=== PATIENT | female | born 1945 | race Caucasian/White ===

== ENCOUNTER 2017-04-13 13:10 | Emergency (ER) | payer MEDICARE ==
[~2017-04-13] VITALS: Ht 180.3 cm; Wt 70.0 kg
[~2017-04-13 13:10] MED LIST: ACAMPROSATE CA333 MG PO; ALPRAZOLAM0.5 MG PO; ALPRAZOLAM1 MG PO; ANAPROX DS550 MG OR; ASPIRIN CHLD81 M1 OR; ASPIRIN EC81 MG PO; CITALOPRAM20 MG PO; CLONAZEPAM1 MG PO; CYMBALTA30 MG PO; DESYREL50 MG PO; FLEXERIL PO; GABAPENTIN300 MG PO; HYDROCHLORO25 MG/TAB PO; LASIX40 MG OR; LIPITOR10 MG PO; LISINOPRIL10 MG PO; LISINOPRIL20 MG PO; LOPRESSOR50 M1 PO; LORTAB 1010 MG PO; MECLIZINE25 MG PO; MEDDOSEPAK OR; METHOCARBAM500 MG PO; MICARDIS80 MG OR; MORPHINE SUL30 M5 PO; NORTRIPTYLIN25 MG PO; OXYCOD/APAP1 TA3 PO; OXYCODONE HCL30 MG PO; OXYCODONE15 MG OR; PAXIL CR25 MG OR; PAXIL20 MG OR; PREDNISONE20 MG PO; RESTORIL15 MG PO; ROXICODONE30 MG OR; TORADOL OR; TYLENOL500 MG OR; ULTRAM50 MG OR; XANAX1 MG OR; ZANAFLEX4 MG PO
[2017-04-13] MEDS ORDERED: MORPHINE SUL30 M3 PO (14:42)
[2017-04-13] MEDS ORDERED: TEMAZEPAM30 MG PO (14:43)
[2017-04-13] MEDS ORDERED: GABAPENTIN600 MG PO (14:45)
[2017-04-13] MEDS ORDERED: AUGMENTIN500TAB PO (15:23)
[2017-04-13 15:29] VITALS: BP 116/74
== END 2017-04-13 15:29 | disposition home or self-care (01) ==
LOC: ED 13:10
DX: S41.112A Laceration without foreign body of left upper arm, initial encounter (principal); M79.622 Pain in left upper arm; W01.190A Fall on same level from slipping, tripping and stumbling with subsequent striking against furniture, initial encounter; Y93.9 Activity, unspecified; Y92.003 Bedroom of unspecified non-institutional (private) residence as the place of occurrence of the external cause

== ENCOUNTER 2017-10-10 19:43 | Emergency (ER) | payer MEDICARE ==
[~2017-10-10] VITALS: Ht 180.3 cm; Wt 56.0 kg
[~2017-10-10 19:43] MED LIST changes: +AUGMENTIN500TAB PO; +GABAPENTIN600 MG PO; +MORPHINE SUL30 M3 PO; +TEMAZEPAM30 MG PO
[2017-10-10 20:21] LABS: HEMATOCRIT 28.6 % (37.0-47.0); HEMOGLOBIN 9.7 g/dl (12.0-16.0); IMMATURE GRANULOCYTES 0.3 % (0.0-1.0); MEAN CORPUSCULAR HGB 34.6 pG CALC (26.0-32.0); MEAN CORPUSCULAR HGB CONC 33.9 g/L CALC (32.0-36.0); NEUT# 6.63 thou/uL (2.00-7.15); RED BLOOD COUNT 2.8 mill/uL (4.20-5.60); RED CELL DISTRI WIDTH 12.2 % (11.5-15.5)
[2017-10-10 20:22] LABS: MEAN CELL VOLUME 102.1 fL CALC (80.0-100.0)
[2017-10-10 21:05] LABS: BILIRUBIN, TOTAL 0.6 mg/dL (0.0-1.4); POTASSIUM 4.3 mmol/l (3.5-5.1)
[2017-10-10 21:08] LABS: ALBUMIN 3.7 g/dL (3.2-5.0); TOTAL PROTEIN 7.1 g/dL (6.3-8.2)
[2017-10-10 22:29] LABS: URINE BILIRUBIN - DIPSTICK NEGATIVE (NEGATIVE); URINE BLOOD DIPSTICK TRACE-INTACT (NEGATIVE); URINE COLOR YELLOW; URINE GLUCOSE - DIPSTICK NEGATIVE (NEGATIVE); URINE KETONE NEGATIVE (NEGATIVE); URINE LEUK ESTERASE NEGATIVE (NEGATIVE); URINE NITRITE - DIPSTICK NEGATIVE (Negative); URINE PH 5.5 (4.5-8.0); URINE PROTEIN - DIPSTICK NEGATIVE (NEG-TRACE); URINE SPECIFIC GRAVITY >=1.030; URINE UROBILINOGEN - DIPSTICK 0.2 E.U./dL (0.2)
[2017-10-10 22:30] LABS: URINE CLARITY CLEAR
[2017-10-10 22:32] LABS: COCAINE NEGATIVE (NEGATIVE); METHADONE NEGATIVE (NEGATIVE); TETRAHYDROCANNABIONOL NEGATIVE (NEGATIVE)
[2017-10-10 22:33] LABS: BARBITURATES NEGATIVE (NEGATIVE); OXCYCODONE POSITIVE (NEGATIVE); TRICYLIC ANTIDEPRESSANTS NEGATIVE (NEGATIVE)
[2017-10-11 00:30] VITALS: BP 107/65
== END 2017-10-11 00:30 | disposition short-term general hospital (02) ==
LOC: ED 19:43
PROVIDERS: Emergency Medicine
PROC: 0T9B70Z Drainage of Bladder with Drainage Device, Via Natural or Artificial Opening (ICD-10-PCS; principal; 2017-10-10)
DX: N17.9 Acute kidney failure, unspecified (principal); M62.82 Rhabdomyolysis; R55 Syncope and collapse; R94.31 Abnormal electrocardiogram [ECG] [EKG]; Y92.009 Unspecified place in unspecified non-institutional (private) residence as the place of occurrence of the external cause; Z72.89 Other problems related to lifestyle

== ENCOUNTER 2019-01-04 09:55 | Inpatient (IN) | payer MEDICARE ==
[~2019-01-04] VITALS: Ht 180.3 cm; Wt 55.0 kg
--- NOTE | 2019-01-04 09:55 | NUR ---
PATIENT ARRIVES TO ED VIA EMS. ALERT AND ORIENTED X3.
--- NOTE | 2019-01-04 10:45 | NUR ---
PATIENT TO CT SCAN.
[2019-01-04 11:05] LABS: HEMOGLOBIN 11.4 g/dl (12.0-16.0); IMMATURE GRANULOCYTES 0.4 % (0.0-5.0); MEAN CELL VOLUME 98.1 fL CALC (80.0-100.0); MEAN CORPUSCULAR HGB 31.6 pG CALC (26.0-32.0); MEAN CORPUSCULAR HGB CONC 32.2 g/L CALC (32.0-36.0); NEUT# 7.15 thou/uL (2.00-7.15); RED BLOOD COUNT 3.61 mill/uL (4.20-5.60); RED CELL DISTRI WIDTH 12.9 % (11.5-15.5)
[2019-01-04 11:09] LABS: HEMATOCRIT 35.4 % (37.0-47.0)
[2019-01-04 11:20] LABS: ANION GAP 13 (6-22 (CALC)); BUN 24 mg/dL (8-23); CARBON DIOXIDE 26 mmol/l (22-30); CHLORIDE 103 mmol/l (95-108); POTASSIUM 4.5 mmol/l (3.5-5.1); SODIUM 138 mmol/l (137-146)
[2019-01-04 11:26] LABS: BUN/CREATININE RATIO 40 (12-20 (CALC)); CREATININE 0.6 mg/dL (0.5-1.0); GFR > 60 ML/MIN (>=60 (CALC)); GFR FOR AFR.AMER. > 60 ML/MIN (>=60 (CALC))
--- NOTE | 2019-01-04 11:35 | NUR ---
PATIENT RESTING ON STRETCHER, NO SIGNS OF DISTRESS NOTED. RATES BACK PAIN 9/10. AFTER BEING MEDICATED WITH 1000 MG OF TYLENOL AND 30 MG OF TORADOL IV PUSH. VISITOR AT BEDSIDE.
[2019-01-04] MEDS ORDERED: CYCLOBENZAPR10 MG PO (11:39)
--- NOTE | 2019-01-04 12:04 | NUR ---
AT BEDSIDE TO DISCUSS RESULTS AND PLAN OF CARE.
--- NOTE | 2019-01-04 13:08 | NUR ---
REPORT CALLED TO ADELE SEGOVIA.
--- NOTE | 2019-01-04 13:12 | NUR ---
PATIENT TRANSPORTED TO [facility] VIA STRETCHER WITH TELE IN PLACE. MORENO SEGOVIA AT BEDSIDE. CARE RELINQUISHED.
--- NOTE | 2019-01-04 13:16 | NUR ---
PT ARRIVED TO MED/SURG ROOM 271 IN STABLE CONDITION ACCOMPANIED BY ADELE DEUTSCH VIA STRETCHER;PT TRANSPORTED TO HOSPITAL BED WITH 3 PERSON ASSIST;WT AND VS OBTAINED BY ILSA CALDERA;PT REPORTS FALLING YESTERDAY MORNING 01/03/19 WHILE AT AT HOME AND AGAIN TODAY, PT RESIDES WITH HER SISTER;PT A&O X4,ORIENTED TO ROOM AND CALL LIGHT SYSTEM;PT REPORTS LOWER BACK PAIN RATING 8/10 ON THE PAIN SCALE, PT TO BE MEDICATED PER EMAR;ASSESSMENT COMPLETED;RESPIRATIONS EVEN AND UNLABORED ON RA,CLEAR LUNG SOUNDS;ABDOMEN SOFT ON PALPATION AND ACTIVE IN ALL 4 QUADRANTS, LAST BM 01/04/19;WEAK PEDAL PULSES;SKIN INTACT, PT DOES APPEAR UNKEPT;#22G TO RIGHT FOREARM FLUSHED AND PATENT,D5 1/2 NS 75ML/HR,SITE APPEARS HEALTHY;TELE MONITORING IN PLACE;PT DENIES ANY ADDITIONAL NEEDS AT THIS TIME TIME AND IS ENCOURAGED TO CALL FOR ASSISTANCE IF NEEDED;FALL PRECAUTIONS IN PLACE WITH BED IN THE LOWEST POSITION AND CALL LIGHT IN REACH;WILL CONTINUE TO MONITOR
[2019-01-04 13:32] VITALS: BP 142/71
--- NOTE | 2019-01-04 13:47 | NUR ---
PT MEDICATED WITH PRN DILAUDID 1MG IVP PER ORDER FOR LOWER BACK PAIN RATING 8/10 ON THE PAIN SCALE,WILL CONTINUE TO MONITOR
[2019-01-04 14:20] VITALS: BP 131/56
--- NOTE | 2019-01-04 14:25 | NUR ---
PT TRANSPORTED TO MRI IN STABLE CONDITION VIA STRETCHER ACCOMPANIED BY ILSA CALDERA.
--- NOTE | 2019-01-04 15:35 | NUR ---
PT ARRIVED BACK TO MED/SURG ROOM 271 IN STABLE CONDITION VIA STRETCHER ACCOMPANIED BY ILSA CALDERA;PT RE-POSITIONED INTO HOSPITAL BED WITH 4 PERSON ASSIST;RESPIRATIONS EVEN AND UNLABORED ON RA;IV FLUIDS RE-STARTED AT THIS TIME TO RFA, SITE APPEARS HEALTHY;TELE MONITORING IN PLACE;PT DENIES ANY ADDITIONAL NEEDS AT THIS TIME AND IS ENCOURAGED TO CALL FOR ASSISTANCE IF NEEDED;CALL LIGHT IN REACH;WILL CONTINUE TO MONITOR
--- NOTE | 2019-01-04 17:09 | NUR ---
PT CRYING REPORTING SHE IS IN SEVERE PAIN AND REQUESTING PAIN MEDICATION;PT EDUCATED THAT PER MD ORDERS IT IS TO EARLY TO ADMINISTER PRN DILAUDID;PT CRYING,WHEN ASKED TO RATE HER PAIN SHE REPORTS A 3/10 ON THE PAIN SCALE TO HER LOWER BACK;NELLA ATTEMPTS TO ADMINISTER PRN TYLENOL BUT PT REFUSES TYLENOL STATING "TYLENOL MAKES ME SICK", NELLA ATTEMPTED TO ASK PT ABOUT THE EFFECTS OF TYLENOL ON HER AND PT IS UNABLE TO PROVIDED INFORMATION REGARDING TYLENOL REACTION;PT MEDICATED WITH PRN OXYCOTIN 40MG PO;WILL MONITOR FOR EFFECTIVENESS
--- NOTE | 2019-01-04 17:27 | NUR ---
AT BEDSIDE DISCUSSING POC.
--- NOTE | 2019-01-04 18:00 | NUR ---
16F CARRION CATHETER INSERTED AT THIS TIME PER ORDER, 200CC OF CLEAR/YELLOW URINE OBTAINED AND STAT LOCK PLACED ON INNER RIGHT THIGH. CATHETER BAG SIGNED AND DATED.PT TOLERATED WELL;WILL CONTINUE TO MONITOR
--- NOTE | 2019-01-04 20:15 | NUR ---
AIDE REPORTED THAT PT WAS NOT WAKING UP. UPON ENTERING THE ROOM PT APPEARED TO BE SLEEPING VERY SOUNDLY. V/S WERE ASSESSED, BP 142/69,HR90, 02SATS 93% BRIGHT LIGHTS TURNED ON AND PT AWOKE TO MY VOICE AND STERNAL RUB. PT WAS CONFUSED TO LOCATION AND CIRCUMSTANCE STATING SHE IS "IN REHAB." PT STATED CORRECT NAME AND W/VERY SLURRED SPEECH. PT HAVING DIFFICULTY HOLDING HER EYES OPEN AND MAKING EYE CONTACT. PT ASSESSED. WILL CONTINUE TO MONITOR.
--- NOTE | 2019-01-04 20:20 | NUR ---
PT SUGAR ASSESSED @109 VIA ACCU-CHECK
[2019-01-04 20:26] VITALS: BP 142/69
--- NOTE | 2019-01-04 21:00 | NUR ---
PT AWOKE AND TALKING TO AIDE W/SLIGHTLY GARBLED SPEECH, BUT EYES OPEN AND LOCX3. WILL CONTINUE TO MONITOR.
--- NOTE | 2019-01-04 21:30 | NUR ---
PT AWAKES I ENTER ROOM AND COMMUNICATES CLEARLY W/SLIGHTLY GARBLED SPEECH. PT IS JUMPY. NO NOTED TREMORS AT THIS TIME. WILL CONTINUE TO MONITOR.
--- NOTE | 2019-01-04 22:27 | NUR ---
PT MEDICATED ORDERS PROVIDE. PT IS JUMPY, FIDGETY, NEURO'S ASSESSED. PT HAS DIFFICULTY FOLLOWING INSTRUCTIONS, BUT WAS ABLE TO IDENTIFY OBJECTS FOR ME. BILATERAL STRENTGH IN FOOT ROM, WILL NOT HOLD ARMS OR LEGS UP BILATERALLY FOR ANY LENGTH OF TIME, DROP TO THE BED. BED ALARM ON FOR PRECAUTION.
[2019-01-05] VITALS (7 sets, daily range): BP systolic 99–140; BP diastolic 49–70
--- NOTE | 2019-01-05 00:04 | NUR ---
PT MEDICATED FOR FEVER 101.9, BLANKETS REMOVED. V/S ASSESSED AT THIS TIME. PT WAS JUST CLEANED OF INCONTINENT LOOSE BROWN STOOL.
--- NOTE | 2019-01-05 00:35 | NUR ---
PT MEDICATED FOR PAIN /, PT WAS JERKING, FIDGETING, SHAKING W/PAIN. ED CALLED TO REPORT ARTICFACT W/CENTRIFUGAL SCREEN TENDER. LEADS ARE IN PLACE, WILL FOLLOW-UP AFTER PT IS MEDICATED FOR READING.
--- NOTE | 2019-01-05 00:44 | NUR ---
PT APPEARS MUCH CALMER, REPORTS FEELING A LITTLE BETTER ALREADY. ED REPORTS TELEMETRY READING. BED ALARM IS ON.
--- NOTE | 2019-01-05 03:30 | NUR ---
pt c/o pain 12/27. medicated w/muscle relaxant for spasms in back. will continue to monitor. pt communicating much clearer at this time.
[2019-01-05 05:08] LABS: HEMATOCRIT 29.5 % (37.0-47.0); HEMOGLOBIN 9.7 g/dl (12.0-16.0); IMMATURE GRANULOCYTES 0.1 % (0.0-5.0); MEAN CELL VOLUME 97.7 fL CALC (80.0-100.0); MEAN CORPUSCULAR HGB 32.1 pG CALC (26.0-32.0); MEAN CORPUSCULAR HGB CONC 32.9 g/L CALC (32.0-36.0); PLATELET COUNT 157 thou/uL (130-400); RED BLOOD COUNT 3.02 mill/uL (4.20-5.60); RED CELL DISTRI WIDTH 12.9 % (11.5-15.5)
[2019-01-05 05:29] LABS: ANION GAP 10 (6-22 (CALC)); BILIRUBIN, TOTAL 0.7 mg/dL (0.0-1.4); BUN 29 mg/dL (8-23); BUN/CREATININE RATIO 35 (12-20 (CALC)); CARBON DIOXIDE 26 mmol/l (22-30); CHLORIDE 106 mmol/l (95-108); CREATININE 0.8 mg/dL (0.5-1.0); GFR > 60 ML/MIN (>=60 (CALC)); GFR FOR AFR.AMER. > 60 ML/MIN (>=60 (CALC)); POTASSIUM 4.8 mmol/l (3.5-5.1); SGOT/AST 47 u/l (9-36); SODIUM 137 mmol/l (137-146); TOTAL PROTEIN 5.8 g/dL (6.3-8.2)
[2019-01-05 05:30] LABS: ALKALINE PHOSPHATASE 119 u/l (38-126)
[2019-01-05 05:36] LABS: MANUAL DIFFERENTIAL YES
[2019-01-05 05:37] LABS: BAND 52 % (0-8)
--- NOTE | 2019-01-05 08:12 | NUR ---
PT A/O X3. SPEECH IS CLEAR. RESP EVEN AND UNLABORED. LUNG SOUNDS CLEAR. TELE IN PLACE. BOWEL SOUNDS ACTIVE X4. STRONG RADIAL AND PEDAL PULSES. #22RFA D5 1/2 NS @75. SITE APPEARS HEALTHY. SKIN INTACT. PT C/O SHARP BACK PAIN; 8 OUT OF 10 ON PAIN SCALE. DISCUSSED W/ PT MED SCHEDULE, PT ONLY WANTS IV PAIN MED. PT STATES "IT WORKS BETTER THAN THE PILLS". DISCUSSED W/ PT I WILL BRING IV PAIN MEDICATION WHEN DUE. PT STATES UNDERSTANDING. REPOSITIONED FOR COMFORT. NO FURTHER NEEDS AT THIS TIME. POC DISCUSSED. SAFETY PRECAUTIONS IN PLACE. CALL LIGHT IN REACH. WILL CONTINUE TO MONITOR.
--- NOTE | 2019-01-05 08:29 | NUR ---
DR. JORGENSEN TOLD DATA INPUT CLERK TO CALL DR. ROSALES REGARDING THIS PATIENT. CALLED THE [phone] NUMBER AND GOT HIS CALL SERVICE LINE. TOLD HER PT NAME, AND THAT DR. JORGENSEN WOULD LIKE HIM TO CALL HIM ON HIS CELL PHONE. THEY STATED THEY WILL GIVE HIM THIS PAGE.
[2019-01-05 11:05] LABS: C. DIFFICILE TOXIN A&B NEGATIVE (NEGATIVE)
--- NOTE | 2019-01-05 12:39 | NUR ---
PT C/O SHARP BACK PAIN; 8 OUT OF 10 ON PAIN SCALE. MEDICATED W/ 1 MG DILAUDID IV. K PAD IN PLACE. PT DENIES ANY FURTHER NEEDS. CALL LIGHT IN REACH. WILL CONTINUE TO MONITOR.
--- NOTE | 2019-01-05 13:21 | NUR ---
Pharmacy called to consult by case managment concerning pain medications. Discussed with patient current inpatient pain medicaation, purpose of each, and side effects. Pt expressed understanding and stated that if she has any questions she will contact pharmacy in the future.
--- NOTE | 2019-01-05 16:49 | NUR ---
PT C/O BACK PAIN; 7 OUT OF 10 ON PAIN SCALE. K PAD IN PLACE. PILLOWS ADJUSTED FOR COMFORT. 1 MG DILUADID IV GIVEN PER PT REQUEST. PT DENIES ANY FURTHER NEEDS. CALL LIGHT IN REACH. WILL CONTINUE TO MONITOR.
--- NOTE | 2019-01-05 18:51 | NUR ---
SPOKE TO JURGEN AT [facility] AT . GAVE PT , ROOM NUMBER HERE AND AT OTHER FACILITY, GAVE WEIGHT, SOCIAL, INSURANCE AND ATTENDING DOCTOR. [facility] STATED THEY CAN BE HERE IN 30 MINUTES TO PROVIDER ENGAGEMENT EXECUTIVE PATIENT.
--- NOTE | 2019-01-05 19:00 | NUR ---
PT IS IN BED ASLEEP W/K-PAD TO BACK FOR COMFORT. PT IS SLEEPING VERY SOUNDLY, SLIGHTLY AWOKE AND RESPONDED TO ME GETTING V/S.
--- NOTE | 2019-01-05 19:30 | NUR ---
PT OFF UNIT FLOOR IN STABLE CONDITION VIA STRETCHER ACCOMPANIED BY [facility] STAFF.
--- NOTE | 2019-01-05 20:05 | NUR ---
MULTIPLE ATTEMPT HAD BEEN MADE TO CALL REPORT FOR RECEIVEING NURSE. RECEIVED RETURN CALL AT THIS TIME BY RECEIVING NURSE, REPORT GIVEN TO ITZEL.
== END 2019-01-05 19:30 | DRG 552 ==
LOC: ED 09:55 → ED-I 11:56 → ED 12:13 → MS2 12:14
PROVIDERS: Family Medicine; ADMIT Internal Medicine Geriatric Medicine; ATTEND Internal Medicine Geriatric Medicine
PROC: 0T9B70Z Drainage of Bladder with Drainage Device, Via Natural or Artificial Opening (ICD-10-PCS; principal; 2019-01-04)
DX: S32.010A Wedge compression fracture of first lumbar vertebra, initial encounter for closed fracture (principal); S22.080A Wedge compression fracture of T11-T12 vertebra, initial encounter for closed fracture; F19.20 Other psychoactive substance dependence, uncomplicated; N17.9 Acute kidney failure, unspecified; I10 Essential (primary) hypertension; G89.29 Other chronic pain; F17.210 Nicotine dependence, cigarettes, uncomplicated; I25.10 Atherosclerotic heart disease of native coronary artery without angina pectoris; D64.9 Anemia, unspecified; F10.20 Alcohol dependence, uncomplicated; W01.0XXA Fall on same level from slipping, tripping and stumbling without subsequent striking against object, initial encounter; Y92.009 Unspecified place in unspecified non-institutional (private) residence as the place of occurrence of the external cause; Z91.81 History of falling

== ENCOUNTER 2021-11-30 19:12 | Emergency (ER) | payer MEDICARE ==
[~2021-11-30] VITALS: Ht 180.3 cm; Wt 59.1 kg
[~2021-11-30 19:12] MED LIST changes: +CYCLOBENZAPRINE10 MG PO
[2021-11-30 19:19] VITALS: BP 126/64
[2021-11-30 19:32] VITALS: BP 124/55
[2021-11-30 20:00] VITALS: BP 122/65
[2021-11-30 20:15] VITALS: BP 123/68
[2021-11-30] MEDS ORDERED: NAPROXEN500 MG PO (20:48)
[2021-11-30 22:52] VITALS: BP 123/68
== END 2021-11-30 22:52 | disposition home or self-care (01) ==
LOC: ED 19:12
DX: S39.012A Strain of muscle, fascia and tendon of lower back, initial encounter (principal); W01.0XXA Fall on same level from slipping, tripping and stumbling without subsequent striking against object, initial encounter; Y92.007 Garden or yard of unspecified non-institutional (private) residence as the place of occurrence of the external cause; S09.90XA Unspecified injury of head, initial encounter; S50.01XA Contusion of right elbow, initial encounter; S00.11XA Contusion of right eyelid and periocular area, initial encounter

== ENCOUNTER 2021-12-02 19:12 | Observation (INO) | payer MEDICARE ==
[~2021-12-02] VITALS: Ht 180.3 cm; Wt 59.0 kg
[2021-12-02] VITALS (9 sets, daily range): BP systolic 165–199; BP diastolic 74–107
[~2021-12-02 19:12] MED LIST changes: +NAPROXEN500 MG PO
[2021-12-02 20:02] LABS: HEMATOCRIT 34.2 % (37.0-47.0); HEMOGLOBIN 11.5 g/dl (12.0-16.0); IMMATURE GRANULOCYTES 0.2 % (0.0-5.0); MEAN CORPUSCULAR HGB 33.6 pG CALC (26.0-32.0); MEAN CORPUSCULAR HGB CONC 33.6 g/dL CAL (32.0-36.0); NEUT# 7.78 thou/uL (2.00-7.15); RED BLOOD COUNT 3.42 mill/uL (4.20-5.60); RED CELL DISTRI WIDTH 12.9 % (11.5-15.5)
[2021-12-02 20:23] LABS: BUN 19 mg/dL (8-23); BUN/CREATININE RATIO 34 (12-20 (CALC)); CARBON DIOXIDE 23 mmol/l (22-30); CHLORIDE 100 mmol/l (95-108); CPK 126 u/l (30-165); CREATININE 0.5 mg/dL (0.5-1.0); GFR FOR AFR.AMER. > 60 ML/MIN (>=60 (CALC)); GFR OTHER RACES > 60 ML/MIN (>=60 (CALC)); MAGNESIUM 1.6 mg/dL (1.6-2.3); SGOT/AST 52 u/l (9-36); SODIUM 132 mmol/l (137-146)
[2021-12-02 20:25] LABS: ALBUMIN 3.7 g/dL (3.2-5.0); ALKALINE PHOSPHATASE 235 u/l (38-126); ANION GAP 13 (6-22 (CALC)); BILIRUBIN, TOTAL 1.4 mg/dL (0.0-1.4); POTASSIUM 3.7 mmol/l (3.5-5.1); TOTAL PROTEIN 7.3 g/dL (6.3-8.2)
[2021-12-02 20:39] LABS: ACT PARTIAL THROMBO TIME 25.1 SECONDS (20.0-32.5); INTERNATIONAL NORMALIZED RATIO 0.9 RATIO (0.7-1.3); PROTHROMBIN TIME 9.8 SECONDS (9.0-12.5)
[2021-12-02 20:52] LABS: TSH, 3RD GENERATION 1.62 uIU/mL (0.47 - 4.68)
[2021-12-02 21:13] LABS: URINE BLOOD DIPSTICK NEGATIVE (NEGATIVE); URINE COLOR YELLOW; URINE GLUCOSE - DIPSTICK NEGATIVE (NEGATIVE); URINE KETONE >=80 mg/dL (NEGATIVE); URINE LEUK ESTERASE NEGATIVE (NEGATIVE); URINE PROTEIN - DIPSTICK NEGATIVE (NEG-TRACE); URINE SPECIFIC GRAVITY >=1.030
[2021-12-02 21:17] LABS: URINE BILIRUBIN - DIPSTICK SMALL (NEGATIVE); URINE NITRITE - DIPSTICK NEGATIVE (Negative)
[2021-12-02] MEDS ORDERED: TEMAZEPAM15 MG PO (21:41)
[2021-12-02] MEDS ORDERED: OXYCODONE20 M1 PO (22:17)
[2021-12-03] VITALS (7 sets, daily range): BP systolic 122–183; BP diastolic 60–83
[2021-12-03 05:35] LABS: IMMATURE GRANULOCYTES 0.1 % (0.0-5.0); MEAN CORPUSCULAR HGB 33.3 pG CALC (26.0-32.0); MEAN CORPUSCULAR HGB CONC 33.3 g/dL CAL (32.0-36.0); NEUT# 5.51 thou/uL (2.00-7.15); RED CELL DISTRI WIDTH 13.2 % (11.5-15.5)
[2021-12-03 06:07] LABS: ALBUMIN 3.1 g/dL (3.2-5.0); ALKALINE PHOSPHATASE 200 u/l (38-126); ANION GAP 9 (6-22 (CALC)); BILIRUBIN, TOTAL 0.9 mg/dL (0.0-1.4); BUN 25 mg/dL (8-23); BUN/CREATININE RATIO 45 (12-20 (CALC)); CARBON DIOXIDE 25 mmol/l (22-30); CHLORIDE 105 mmol/l (95-108); CREATININE 0.6 mg/dL (0.5-1.0); GFR FOR AFR.AMER. > 60 ML/MIN (>=60 (CALC)); GFR OTHER RACES > 60 ML/MIN (>=60 (CALC)); POTASSIUM 4.3 mmol/l (3.5-5.1); SGOT/AST 49 u/l (9-36); SODIUM 135 mmol/l (137-146); TOTAL PROTEIN 6.1 g/dL (6.3-8.2)
[2021-12-03 06:08] LABS: MAGNESIUM 2.6 mg/dL (1.6-2.3)
[2021-12-04] VITALS (7 sets, daily range): BP systolic 145–161; BP diastolic 68–76
[2021-12-04 06:00] LABS: HEMATOCRIT 32.6 % (37.0-47.0); HEMOGLOBIN 10.5 g/dl (12.0-16.0); IMMATURE GRANULOCYTES 0.3 % (0.0-5.0); MEAN CELL VOLUME 105.2 fL CALC (80.0-100.0); MEAN CORPUSCULAR HGB 33.9 pG CALC (26.0-32.0); MEAN CORPUSCULAR HGB CONC 32.2 g/dL CAL (32.0-36.0); NEUT# 5.35 thou/uL (2.00-7.15); RED BLOOD COUNT 3.1 mill/uL (4.20-5.60); RED CELL DISTRI WIDTH 13.3 % (11.5-15.5)
[2021-12-04 06:12] LABS: ALKALINE PHOSPHATASE 180 u/l (38-126); BILIRUBIN, TOTAL 0.7 mg/dL (0.0-1.4); BUN 21 mg/dL (8-23); BUN/CREATININE RATIO 38 (12-20 (CALC)); CARBON DIOXIDE 24 mmol/l (22-30); CHLORIDE 104 mmol/l (95-108); CREATININE 0.6 mg/dL (0.5-1.0); GFR FOR AFR.AMER. > 60 ML/MIN (>=60 (CALC)); GFR OTHER RACES > 60 ML/MIN (>=60 (CALC)); SGOT/AST 50 u/l (9-36); SODIUM 131 mmol/l (137-146); TOTAL PROTEIN 5.8 g/dL (6.3-8.2)
[2021-12-04 06:13] LABS: ANION GAP 8 (6-22 (CALC)); POTASSIUM 5.4 mmol/l (3.5-5.1)
[2021-12-05 03:41] VITALS: BP 144/65
[2021-12-05 06:03] LABS: HEMATOCRIT 30.8 % (37.0-47.0); HEMOGLOBIN 10.1 g/dl (12.0-16.0); IMMATURE GRANULOCYTES 0.3 % (0.0-5.0); MEAN CELL VOLUME 103.7 fL CALC (80.0-100.0); MEAN CORPUSCULAR HGB CONC 32.8 g/dL CAL (32.0-36.0); NEUT# 5.86 thou/uL (2.00-7.15); RED BLOOD COUNT 2.97 mill/uL (4.20-5.60); RED CELL DISTRI WIDTH 13.3 % (11.5-15.5)
[2021-12-05 06:09] LABS: ALBUMIN 2.9 g/dL (3.2-5.0); ALKALINE PHOSPHATASE 170 u/l (38-126); ANION GAP 9 (6-22 (CALC)); BILIRUBIN, TOTAL 0.6 mg/dL (0.0-1.4); BUN 18 mg/dL (8-23); BUN/CREATININE RATIO 38 (12-20 (CALC)); CARBON DIOXIDE 25 mmol/l (22-30); CHLORIDE 103 mmol/l (95-108); CREATININE 0.5 mg/dL (0.5-1.0); GFR FOR AFR.AMER. > 60 ML/MIN (>=60 (CALC)); GFR OTHER RACES > 60 ML/MIN (>=60 (CALC)); MAGNESIUM 1.7 mg/dL (1.6-2.3); POTASSIUM 4.4 mmol/l (3.5-5.1); SGOT/AST 42 u/l (9-36); SODIUM 134 mmol/l (137-146); TOTAL PROTEIN 5.8 g/dL (6.3-8.2)
[2021-12-05 07:12] VITALS: BP 138/65
[2021-12-05 08:00] VITALS: BP 138/65
[2021-12-05 14:04] VITALS: BP 138/65
[2021-12-05 16:22] VITALS: BP 138/65
[2021-12-05 18:43] VITALS: BP 146/60
[2021-12-05 20:42] LABS: URINE BILIRUBIN - DIPSTICK NEGATIVE (NEGATIVE); URINE BLOOD DIPSTICK NEGATIVE (NEGATIVE); URINE CLARITY CLEAR; URINE COLOR YELLOW; URINE GLUCOSE - DIPSTICK NEGATIVE (NEGATIVE); URINE KETONE TRACE mg/dL (NEGATIVE); URINE LEUK ESTERASE NEGATIVE (Negative); URINE NITRITE - DIPSTICK NEGATIVE (Negative); URINE PROTEIN - DIPSTICK NEGATIVE (NEG-TRACE); URINE SPECIFIC GRAVITY 1.015
[2021-12-06 03:42] VITALS: BP 161/73
[2021-12-06 05:13] LABS: HEMATOCRIT 30.1 % (37.0-47.0); HEMOGLOBIN 9.9 g/dl (12.0-16.0); IMMATURE GRANULOCYTES 0.4 % (0.0-5.0); MEAN CELL VOLUME 102.7 fL CALC (80.0-100.0); MEAN CORPUSCULAR HGB 33.8 pG CALC (26.0-32.0); MEAN CORPUSCULAR HGB CONC 32.9 g/dL CAL (32.0-36.0); NEUT# 4.93 thou/uL (2.00-7.15); RED BLOOD COUNT 2.93 mill/uL (4.20-5.60); RED CELL DISTRI WIDTH 13.3 % (11.5-15.5)
[2021-12-06 05:24] LABS: ANION GAP 9 (6-22 (CALC)); BUN 20 mg/dL (8-23); BUN/CREATININE RATIO 43 (12-20 (CALC)); CARBON DIOXIDE 26 mmol/l (22-30); CHLORIDE 101 mmol/l (95-108); CREATININE 0.5 mg/dL (0.5-1.0); GFR FOR AFR.AMER. > 60 ML/MIN (>=60 (CALC)); GFR OTHER RACES > 60 ML/MIN (>=60 (CALC)); MAGNESIUM 1.6 mg/dL (1.6-2.3); POTASSIUM 4.4 mmol/l (3.5-5.1); SODIUM 131 mmol/l (137-146)
[2021-12-06 06:41] VITALS: BP 165/82
[2021-12-06 08:00] VITALS: BP 165/82
[2021-12-06 16:30] VITALS: BP 165/82
[2021-12-06 19:06] VITALS: BP 167/86
[2021-12-07] VITALS (7 sets, daily range): BP systolic 169–184; BP diastolic 78–91
[2021-12-07 09:00] LABS: IMMATURE GRANULOCYTES 0.4 % (0.0-5.0); MEAN CELL VOLUME 102.4 fL CALC (80.0-100.0); MEAN CORPUSCULAR HGB 34.1 pG CALC (26.0-32.0); MEAN CORPUSCULAR HGB CONC 33.3 g/dL CAL (32.0-36.0); NEUT# 5.74 thou/uL (2.00-7.15); RED BLOOD COUNT 2.93 mill/uL (4.20-5.60); RED CELL DISTRI WIDTH 13.4 % (11.5-15.5)
[2021-12-07 09:31] LABS: ALBUMIN 3.1 g/dL (3.2-5.0); ALKALINE PHOSPHATASE 161 u/l (38-126); ANION GAP 8 (6-22 (CALC)); BILIRUBIN, TOTAL 0.7 mg/dL (0.0-1.4); BUN 17 mg/dL (8-23); BUN/CREATININE RATIO 42 (12-20 (CALC)); CARBON DIOXIDE 24 mmol/l (22-30); CHLORIDE 105 mmol/l (95-108); CREATININE 0.4 mg/dL (0.5-1.0); GFR FOR AFR.AMER. > 60 ML/MIN (>=60 (CALC)); GFR OTHER RACES > 60 ML/MIN (>=60 (CALC)); MAGNESIUM 1.7 mg/dL (1.6-2.3); SGOT/AST 44 u/l (9-36); SODIUM 134 mmol/l (137-146); TOTAL PROTEIN 6.3 g/dL (6.3-8.2)
[2021-12-07 09:45] LABS: POTASSIUM 3.4 mmol/l (3.5-5.1)
[2021-12-07] MEDS ORDERED: OXYCODONE20 M1 PO (10:27)
[2021-12-07] MEDS ORDERED: AMLODIPINE BESYL5 MG PO (10:27)
[2021-12-07] MEDS ORDERED: MORPHINE SUL30 M3 PO (10:27)
== END 2021-12-07 16:20 ==
LOC: ED 19:12 → ED-I 21:46 → MS2 21:47 → ED 21:47 → MS2 12-07 16:20
PROVIDERS: Family Medicine; Internal Medicine; Nurse Practitioner; ADMIT Internal Medicine; ATTEND Internal Medicine
DX: M25.551 Pain in right hip (principal); M25.552 Pain in left hip; M54.50 Low back pain, unspecified; G89.29 Other chronic pain; I10 Essential (primary) hypertension; E87.5 Hyperkalemia; F17.210 Nicotine dependence, cigarettes, uncomplicated; I25.10 Atherosclerotic heart disease of native coronary artery without angina pectoris; F41.9 Anxiety disorder, unspecified; F32.A Depression, unspecified; F10.20 Alcohol dependence, uncomplicated; I25.2 Old myocardial infarction; W17.89XA Other fall from one level to another, initial encounter; Z79.891 Long term (current) use of opiate analgesic; Z91.81 History of falling; Z20.822 Contact with and (suspected) exposure to COVID-19
CPT/HCPCS: J1650

== ENCOUNTER 2023-07-31 12:42 | Emergency (ER) | payer MEDICARE ==
[2023-07-31] VITALS (15 sets, daily range): BP systolic 124–174; BP diastolic 72–121
[~2023-07-31] VITALS: Ht 180.3 cm; Wt 59.9 kg
[~2023-07-31 12:42] MED LIST changes: +AMLODIPINE BESYL5 MG PO; +OXYCODONE20 M1 PO; +TEMAZEPAM15 MG PO
[2023-07-31 14:19] LABS: BASO% 0.3 % (0-3); EOS% 2.4 % (0-8); HEMOGLOBIN 11.9 g/dl (12.0-16.0); IMMATURE GRANULOCYTES 0.2 % (0.0-5.0); LYMPH% 18.8 % (15-41); MEAN CELL VOLUME 100.5 fL CALC (80.0-100.0); MEAN CORPUSCULAR HGB 31.6 pG CALC (26.0-32.0); MEAN CORPUSCULAR HGB CONC 31.5 g/dL CAL (32.0-36.0); MONO% 9.3 % (2-13); NEUT# 7.05 thou/uL (2.00-7.15); RED BLOOD COUNT 3.76 mill/uL (4.20-5.60); RED CELL DISTRI WIDTH 12.6 % (11.5-15.5)
[2023-07-31 14:20] LABS: HEMATOCRIT 37.8 % (37.0-47.0)
[2023-07-31 14:55] LABS: BUN 18 mg/dL (8-23); BUN/CREATININE RATIO 21 (12-20 (CALC)); CHLORIDE 103 mmol/l (95-108); CREATININE 0.9 mg/dL (0.5-1.0); GFR FOR AFR.AMER. > 60 ML/MIN (>=60 (CALC)); GFR OTHER RACES > 60 ML/MIN (>=60 (CALC)); POTASSIUM 3.8 mmol/l (3.5-5.1); SGOT/AST 55 u/l (9-36); SODIUM 139 mmol/l (137-146)
[2023-07-31 14:58] LABS: ALKALINE PHOSPHATASE 79 u/l (38-126); ANION GAP 9 (6-22 (CALC)); BILIRUBIN, TOTAL 0.3 mg/dL (0.02-1.3); CARBON DIOXIDE 31 mmol/l (22-30)
[2023-07-31] MEDS ORDERED: diazePAM 10 MG/2 ML VIAL IM ONE (15:35)
[2023-07-31 17:49] LABS: URINE BLOOD DIPSTICK Negative (NEGATIVE); URINE COLOR Yellow; URINE GLUCOSE - DIPSTICK Negative (NEGATIVE); URINE KETONE Trace mg/dL (NEGATIVE); URINE LEUK ESTERASE Negative (NEGATIVE); URINE NITRITE - DIPSTICK Negative (Negative); URINE PH 6.5 (4.5-8.0); URINE PROTEIN - DIPSTICK Negative (NEG-TRACE)
== END 2023-07-31 18:44 | disposition home or self-care (01) ==
LOC: ED 12:42
PROVIDERS: Emergency Medicine
DX: R25.1 Tremor, unspecified (principal); M25.561 Pain in right knee; M25.551 Pain in right hip; M25.571 Pain in right ankle and joints of right foot; I25.10 Atherosclerotic heart disease of native coronary artery without angina pectoris; I25.2 Old myocardial infarction; F17.210 Nicotine dependence, cigarettes, uncomplicated; W18.39XA Other fall on same level, initial encounter; Y92.009 Unspecified place in unspecified non-institutional (private) residence as the place of occurrence of the external cause

== ENCOUNTER 2024-01-02 11:01 | Inpatient (IN) | payer MEDICARE, MEDICAID ==
[~2024-01-02] VITALS: Ht 180.3 cm; Wt 57.8 kg
[2024-01-02] VITALS (13 sets, daily range): BP systolic 125–168; BP diastolic 60–119
[2024-01-02] MEDS ORDERED: MORPHINE SUL30 M3 PO (11:23)
[2024-01-02] MEDS ORDERED: LINZESS72 MCG (11:26)
[2024-01-02] MEDS ORDERED: MIRALAX17 GM (11:26)
[2024-01-02 12:08] LABS: URINE BILIRUBIN - DIPSTICK Negative (NEGATIVE); URINE BLOOD DIPSTICK Negative (NEGATIVE); URINE GLUCOSE - DIPSTICK Negative (NEGATIVE); URINE KETONE Trace mg/dL (NEGATIVE); URINE LEUK ESTERASE Trace (NEGATIVE); URINE NITRITE - DIPSTICK Negative (Negative); URINE PH 5.5 (4.5-8.0); URINE PROTEIN - DIPSTICK Negative (NEG-TRACE); URINE SPECIFIC GRAVITY 1.025
[2024-01-02 12:14] LABS: BASO% 0.4 % (0-3); EOS% 2.6 % (0-8); HEMATOCRIT 36.9 % (37.0-47.0); HEMOGLOBIN 12.1 g/dl (12.0-16.0); IMMATURE GRANULOCYTES 0.3 % (0.0-5.0); LYMPH% 20.9 % (15-41); MEAN CELL VOLUME 99.2 fL CALC (80.0-100.0); MEAN CORPUSCULAR HGB 32.5 pG CALC (26.0-32.0); MEAN CORPUSCULAR HGB CONC 32.8 g/dL CAL (32.0-36.0); MONO% 7.4 % (2-13); NEUT# 7.26 thou/uL (2.00-7.15); NEUT% 68.4 % (42-76); RED BLOOD COUNT 3.72 mill/uL (4.20-5.60); RED CELL DISTRI WIDTH 12.3 % (11.5-15.5)
[2024-01-02 12:16] LABS: URINE COLOR Yellow
[2024-01-02 12:27] LABS: ALBUMIN 4.1 g/dL (3.2-5.0); BILIRUBIN, TOTAL 0.4 mg/dL (0.02-1.3); CREATININE 0.7 mg/dL (0.5-1.0); TOTAL PROTEIN 8.2 g/dL (6.3-8.2)
[2024-01-02 12:28] LABS: POTASSIUM 4.8 mmol/l (3.5-5.1)
[2024-01-02] MEDS ORDERED: KETOROLAC TROMETHAMINE 30 MG/ML SDV IV ONE (13:25)
[2024-01-02] MEDS ORDERED: Peg 3350-POTASSIUM CHLORIDE-So 4,000 ML BTL PO ONE (14:20)
[2024-01-02] MEDS ORDERED: SODIUM CHLORIDE 0.9% 1,000 ML IV PRN (14:55)
[2024-01-02] MEDS ORDERED: ACETAMINOPHEN 325 MG/TAB PO PRN (14:55)
[2024-01-02] MEDS ORDERED: MAGNESIUM HYDROXIDE 30 ML UDC PO PRN (14:55)
[2024-01-02] MEDS ORDERED: oxyCODONE 10MG/APAP 325 MG 1 COMBO TAB PO PRN (15:35)
[2024-01-02] MEDS ORDERED: MORPHINE SULFATE ER 15 MG/TAB PO PRN (15:40)
[2024-01-02] MEDS ORDERED: SENNOSIDES-Docusate Sodium 1 COMBO TAB PO SCH (16:00)
[2024-01-02] MEDS ORDERED: ENOXAPARIN SODIUM 40 MG/0.4 ML SYR SC SCH (21:00)
[2024-01-03] VITALS (9 sets, daily range): BP systolic 125–227; BP diastolic 60–108
[2024-01-03 04:54] LABS: BASO% 0.5 % (0-3); EOS% 5.4 % (0-8); HEMATOCRIT 34.9 % (37.0-47.0); HEMOGLOBIN 11.2 g/dl (12.0-16.0); IMMATURE GRANULOCYTES 0.2 % (0.0-5.0); LYMPH% 26.2 % (15-41); MEAN CELL VOLUME 100.9 fL CALC (80.0-100.0); MEAN CORPUSCULAR HGB 32.4 pG CALC (26.0-32.0); MEAN CORPUSCULAR HGB CONC 32.1 g/dL CAL (32.0-36.0); MONO% 10.4 % (2-13); NEUT# 6.05 thou/uL (2.00-7.15); NEUT% 57.3 % (42-76); RED BLOOD COUNT 3.46 mill/uL (4.20-5.60); RED CELL DISTRI WIDTH 12.5 % (11.5-15.5)
[2024-01-03 05:29] LABS: ALBUMIN 3.4 g/dL (3.2-5.0); BILIRUBIN, TOTAL 0.4 mg/dL (0.02-1.3); CREATININE 0.9 mg/dL (0.5-1.0); MAGNESIUM 2.3 mg/dL (1.6-2.3); POTASSIUM 5.7 mmol/l (3.5-5.1); TOTAL PROTEIN 6.7 g/dL (6.3-8.2)
[2024-01-03] MEDS ORDERED: GLYCERIN 2 GM SUP RE SCH (12:00)
[2024-01-03] MEDS ORDERED: DIATRIZOATE MEGLUMINE & SODIUM 30 ML/BTL BTL PO SCH (13:00)
[2024-01-03] MEDS ORDERED: MAGNESIUM HYDROXIDE 30 ML UDC PO SCH (15:00)
[2024-01-03] MEDS ORDERED: ONDANSETRON HCl 4 MG/2 ML SDV IV PRN (23:10)
[2024-01-03] MEDS ORDERED: hydrALAZINE HCL 20 MG/ML VIAL(1 ML) IV PRN (23:10)
[2024-01-03] MEDS ORDERED: MORPHINE SULFATE 4 MG/ML VIAL IV SCH (23:15)
[2024-01-04] VITALS (9 sets, daily range): BP systolic 140–180; BP diastolic 78–97
[2024-01-04 07:37] LABS: BASO% 0.2 % (0-3); EOS% 0.4 % (0-8); HEMATOCRIT 36.8 % (37.0-47.0); HEMOGLOBIN 12.4 g/dl (12.0-16.0); IMMATURE GRANULOCYTES 0.2 % (0.0-5.0); LYMPH% 12.4 % (15-41); MEAN CELL VOLUME 96.6 fL CALC (80.0-100.0); MEAN CORPUSCULAR HGB 32.5 pG CALC (26.0-32.0); MEAN CORPUSCULAR HGB CONC 33.7 g/dL CAL (32.0-36.0); MONO% 8.5 % (2-13); NEUT# 10.07 thou/uL (2.00-7.15); NEUT% 78.3 % (42-76); RED BLOOD COUNT 3.81 mill/uL (4.20-5.60); RED CELL DISTRI WIDTH 12.2 % (11.5-15.5)
[2024-01-04 08:22] LABS: ALBUMIN 3.8 g/dL (3.2-5.0); CREATININE 0.6 mg/dL (0.5-1.0); MAGNESIUM 2.1 mg/dL (1.6-2.3); POTASSIUM 4.7 mmol/l (3.5-5.1); TOTAL PROTEIN 7.3 g/dL (6.3-8.2)
[2024-01-04 08:24] LABS: BILIRUBIN, TOTAL 0.7 mg/dL (0.02-1.3)
[2024-01-04] MEDS ORDERED: LOSARTAN Potassium 50 MG/TAB PO SCH (11:00)
[2024-01-04] MEDS ORDERED: Zaleplon 5 MG/CAP PO PRN (21:25)
[2024-01-05] VITALS (18 sets, daily range): BP systolic 133–189; BP diastolic 76–104
[2024-01-05 05:35] LABS: BASO% 0.3 % (0-3); EOS% 3.5 % (0-8); HEMATOCRIT 35.6 % (37.0-47.0); HEMOGLOBIN 11.7 g/dl (12.0-16.0); IMMATURE GRANULOCYTES 0.2 % (0.0-5.0); LYMPH% 22.6 % (15-41); MEAN CELL VOLUME 98.3 fL CALC (80.0-100.0); MEAN CORPUSCULAR HGB 32.3 pG CALC (26.0-32.0); MEAN CORPUSCULAR HGB CONC 32.9 g/dL CAL (32.0-36.0); MONO% 10.5 % (2-13); NEUT# 5.96 thou/uL (2.00-7.15); NEUT% 62.9 % (42-76); RED BLOOD COUNT 3.62 mill/uL (4.20-5.60); RED CELL DISTRI WIDTH 12.7 % (11.5-15.5)
[2024-01-05 05:45] LABS: ALBUMIN 3.4 g/dL (3.2-5.0); BILIRUBIN, TOTAL 0.7 mg/dL (0.02-1.3); CREATININE 0.6 mg/dL (0.5-1.0); MAGNESIUM 2.5 mg/dL (1.6-2.3); POTASSIUM 4.8 mmol/l (3.5-5.1); TOTAL PROTEIN 6.4 g/dL (6.3-8.2)
[2024-01-05] MEDS ORDERED: MIDAZOLAM HCL 2 MG/2 ML VIAL IV ONE (09:00)
[2024-01-05] MEDS ORDERED: LIDOCAINE HCL 2% 2ML SDV IV ONE (09:00)
[2024-01-05] MEDS ORDERED: LABETALOL HCL 100 MG/20 ML VIAL IV ONE (09:00)
[2024-01-05] MEDS ORDERED: PROPOFOL 200 MG/20 ML VIAL IV ONE (09:00)
[2024-01-05] MEDS ORDERED: KETAMINE HCL 50 MG/ML 10 ML VIAL IV ONE (09:00)
[2024-01-05] MEDS ORDERED: SODIUM CHLORIDE 0.9% 10 ML SYR ONE (09:30)
[2024-01-05] MEDS ORDERED: LACTATED RINGER'S 1,000 ML IV ONE (09:30)
[2024-01-05] MEDS ORDERED: FAMOTIDINE 10MG/ML 2ML SDV IV ONE (09:47)
[2024-01-05] MEDS ORDERED: MAGNESIUM CITRATE 296 ML/BTL PO SCH (11:30)
[2024-01-05] MEDS ORDERED: SODIUM CHLORIDE 1,000 ML BTL IR ONE (11:35)
[2024-01-05] MEDS ORDERED: STERILE WATER FOR IRRIGATION 1,000 ML BTL IR ONE (11:35)
[2024-01-05] MEDS ORDERED: NICOTINE TRANSDERMAL 21 MG/PATCH TD SCH (13:00)
[2024-01-06] VITALS (12 sets, daily range): BP systolic 152–177; BP diastolic 64–85
[2024-01-06 05:12] LABS: BASO% 0.3 % (0-3); EOS% 2.2 % (0-8); HEMATOCRIT 34.1 % (37.0-47.0); HEMOGLOBIN 11.6 g/dl (12.0-16.0); IMMATURE GRANULOCYTES 0.1 % (0.0-5.0); LYMPH% 19.1 % (15-41); MEAN CELL VOLUME 96.9 fL CALC (80.0-100.0); NEUT# 6.59 thou/uL (2.00-7.15); NEUT% 68.3 % (42-76); RED BLOOD COUNT 3.52 mill/uL (4.20-5.60); RED CELL DISTRI WIDTH 12.5 % (11.5-15.5)
[2024-01-06 05:26] LABS: ALBUMIN 3.3 g/dL (3.2-5.0); BILIRUBIN, TOTAL 0.8 mg/dL (0.02-1.3); CREATININE 0.6 mg/dL (0.5-1.0); TOTAL PROTEIN 6.3 g/dL (6.3-8.2)
[2024-01-06 05:41] LABS: POTASSIUM 2.9 mmol/l (3.5-5.1)
[2024-01-06] MEDS ORDERED: POTASSIUM CHLORIDE 20 MEQ/TAB PO SCH (08:00)
[2024-01-06] MEDS ORDERED: DEXTROSE IV PRN (11:00)
[2024-01-06] MEDS ORDERED: SODIUM CHLORIDE IV PRN (11:00)
[2024-01-06] MEDS ORDERED: POTASSIUM CHLORIDE IV PRN (11:00)
[2024-01-07 04:09] VITALS: BP 161/81
[2024-01-07 04:42] LABS: BASO% 0.4 % (0-3); EOS% 4.8 % (0-8); HEMATOCRIT 33.1 % (37.0-47.0); HEMOGLOBIN 11.4 g/dl (12.0-16.0); IMMATURE GRANULOCYTES 0.1 % (0.0-5.0); LYMPH% 29.3 % (15-41); MEAN CELL VOLUME 95.9 fL CALC (80.0-100.0); MEAN CORPUSCULAR HGB CONC 34.4 g/dL CAL (32.0-36.0); NEUT# 3.6 thou/uL (2.00-7.15); NEUT% 52.4 % (42-76); RED BLOOD COUNT 3.45 mill/uL (4.20-5.60); RED CELL DISTRI WIDTH 12.5 % (11.5-15.5)
[2024-01-07 04:48] VITALS: BP 161/81
[2024-01-07 04:57] LABS: ALBUMIN 3.3 g/dL (3.2-5.0); BILIRUBIN, TOTAL 0.7 mg/dL (0.02-1.3); CREATININE 0.5 mg/dL (0.5-1.0); POTASSIUM 3.4 mmol/l (3.5-5.1); TOTAL PROTEIN 6.2 g/dL (6.3-8.2)
[2024-01-07 05:23] LABS: MAGNESIUM 1.7 mg/dL (1.6-2.3)
[2024-01-07] MEDS ORDERED: GERI-KOT8.6 MG PO (06:27)
[2024-01-07 07:07] VITALS: BP 166/86
[2024-01-07] MEDS ORDERED: ESCITALOPRAM OX10 MG PO (10:13)
[2024-01-07 11:07] VITALS: BP 168/87
== END 2024-01-07 12:36 | disposition home or self-care (01) | DRG 392 ==
LOC: ED 11:01 → ED-I 13:01 → ED 14:41 → MS2 14:42
PROVIDERS: Family Medicine; Nurse Practitioner Family; ADMIT Student in an Organized Health Care Education/Training Program; ATTEND Student in an Organized Health Care Education/Training Program
PROC: 0DCP7ZZ Extirpation of Matter from Rectum, Via Natural or Artificial Opening (ICD-10-PCS; principal; 2024-01-05)
PROC: 0DJD8ZZ Inspection of Lower Intestinal Tract, Via Natural or Artificial Opening Endoscopic (ICD-10-PCS; 2024-01-05)
DX: K59.03 Drug induced constipation (principal); T40.605A Adverse effect of unspecified narcotics, initial encounter; I10 Essential (primary) hypertension; I25.10 Atherosclerotic heart disease of native coronary artery without angina pectoris; F10.20 Alcohol dependence, uncomplicated; F17.210 Nicotine dependence, cigarettes, uncomplicated; M54.9 Dorsalgia, unspecified; G89.29 Other chronic pain; I25.2 Old myocardial infarction; Z87.442 Personal history of urinary calculi; Z91.81 History of falling; Z79.891 Long term (current) use of opiate analgesic; Z20.822 Contact with and (suspected) exposure to COVID-19; Z79.899 Other long term (current) drug therapy
CPT/HCPCS: J1650; Q9967

== ENCOUNTER 2024-03-26 10:04 | Day surgery (SDC) | payer MEDICARE, MEDICAID ==
[~2024-03-26] VITALS: Ht 180.3 cm; Wt 56.7 kg
[~2024-03-26 10:04] MED LIST changes: +ESCITALOPRAM OX10 MG PO; +GERI-KOT8.6 MG PO; +GLAUCOMA GTTS IO; +LINZESS72 MCG; +MIRALAX17 GM; +TUMS E-X 750750 MG PO
[2024-03-26] MEDS ORDERED: FAMOTIDINE 10MG/ML 2ML SDV IV ONE (10:17)
[2024-03-26] MEDS ORDERED: LACTATED RINGER'S 1,000 ML IV ONE (10:17)
[2024-03-26 12:30] VITALS: BP 128/70
[2024-03-26] MEDS ORDERED: LIDOCAINE HCL 2% 2ML SDV IV ONE (17:57)
[2024-03-26] MEDS ORDERED: PROPOFOL 200 MG/20 ML VIAL IV ONE (17:57)
[2024-03-26] MEDS ORDERED: LACTATED RINGER'S 1,000 ML BAG IV ONE (17:57)
== END 2024-03-26 12:56 | disposition home or self-care (01) ==
LOC: ORM 10:04
PROVIDERS: ATTEND Internal Medicine Gastroenterology
PROC: 0DJD8ZZ Inspection of Lower Intestinal Tract, Via Natural or Artificial Opening Endoscopic (ICD-10-PCS; principal; 2024-03-26)
DX: K56.41 Fecal impaction (principal); I10 Essential (primary) hypertension; Z79.891 Long term (current) use of opiate analgesic; F17.210 Nicotine dependence, cigarettes, uncomplicated; Z80.0 Family history of malignant neoplasm of digestive organs